=== PATIENT | female | born 1990 | race Caucasian/White ===

== ENCOUNTER 2021-01-26 19:03 | Emergency (ER) | payer OTHER, SELFPAY ==
--- NOTE | ~2021-01-26 | XR_ITS ---
EXAMINATION: XR knee LT min 4V DATE: 01/26/2021 19:26 INDICATION: Left knee pain. TECHNIQUE: 4 views of left knee were obtained. COMPARISON: None. FINDINGS: Bone alignment is normal. No fracture. Joint spaces are well maintained. There is no knee j oint effusion. IMPRESSION: 1. Normal left knee. Reviewed, dictated and finalized at location A. IMPRESSION: 1. Normal left knee.
[2021-01-26 19:15] VITALS: BP 110/83; PULSE 71; RESP 16; TEMP 36.2; O2SAT 100
--- NOTE | 2021-01-26 19:51 | ED.LOWEXIN ---
HPI - Extremity Injury (Lower) General Chief Complaint: Extremity Injury, Lower Stated Complaint: Left Knee Pain Time Seen by Provider: 01/26/21 19:51 Source: patient, RN notes reviewed and old records reviewed Mode of arrival: ambulatory Limitations: no limitations History of Present Illness HPI Narrative: 30 year old female who presents to [facility] with complaints of falling on stairs and hit her left knee on work out equipment. MD complaint: knee injury Type of Injury: blunt Severity scale (1-10): 6 Review of Systems Review of Systems: CONSTITUTIONAL: Denies fever, chills, or sweats. EYES: Denies visual changes, redness, or discharge. ENT: Denies rhinorrhea, congestion, sore throat, or otalgia. CARDIOVASCULAR: Denies chest pain, palpitations, or edema. RESPIRATORY: Denies cough or dyspnea. GASTROINTESTINAL: Denies abdominal pain, nausea, vomiting, or diarrhea. GENITOURINARY: Denies dysuria or hematuria. SKIN: Denies rash or itching.abrasion anterior left knee MUSCULOSKELETAL: Denies back pain, positive for left knee joint pain, or myalgia. NEUROLOGIC: Denies headache, numbness, or weakness. PSYCHIATRIC: Denies anxiety or depression. All systems reviewed & are unremarkable except as noted in HPI and below PMFSH Past Medical History Medical History (Updated 01/31/21 @ 17:53 by Deepali Wei NP) Seasonal allergies Surgical History Surgical History (Updated 01/31/21 @ 17:45 by Deepali Wei NP) No history of previous surgery Family History Family History (Updated 01/31/21 @ 17:45 by Deepali Wei NP) Other No significant family history Social History Social History (Updated 01/31/21 @ 17:43 by Deepali Wei NP) Smoking status: Never smoker Alcohol intake: current Alcohol use details: social Substance use: never Living arrangements: with family Gender identity (if verbalized by the patient): Female Comments At time of signature, agree with nursing past medical, surgical, social and family history. There is no relevant family history pertinent to the presenting complaint Exam Narrative: GENERAL: Well-appearing, well-nourished, and in no acute distress. HEAD: Normocephalic, atraumatic. EYES: PERRLA and EOMI. ENT: Nares clear, no rhinorrhea or epistaxis. Mucous membranes moist.TM's normal throat normal NECK: Supple.no lymphadenopathy CHEST: Clear to auscultation. No respiratory distress. HEART: Regular rate and rhythm. No murmur heard. Normal peripheral pulses. ABDOMEN: Soft, nontender, nondistended, normal active bowel sounds. EXTREMITIES: Normal range of motion. No edema.Pain to left knee especially with weight bearing, no laxity of knee joint noted, pain to anterior left knee region, no acute knee swelling noted,mobility, sensation and circulation intact. SKIN: Warm, dry, no rash.abrasion to left knee from fall NEURO: No focal deficits. Alert and oriented x3. Course Vital Signs Vital signs: Vital Signs Temperature 36.2 C L 01/26/21 19:15 Pulse Rate 71 01/26/21 19:15 Respiratory Rate 16 01/26/21 19:15 Blood Pressure 110/83 01/26/21 19:15 Pulse Oximetry 100 01/26/21 19:15 Temperature 36.2 C L 01/26/21 19:15 Pulse Rate 71 01/26/21 19:15 Respiratory Rate 16 01/26/21 19:15 Blood Pressure 110/83 01/26/21 19:15 Pulse Oximetry 100 01/26/21 19:15 MDM - Extremity Injury (Lower) Differential Diagnosis Differential diagnosis: Likely acute internal derangement of knee and other (Knee pain left, abrasion left knee, contusion left knee) Medical Records Attestation: I reviewed the patient's medical records. Imaging Data Attestation: I personally reviewed and interpreted this imaging study as follows: My impression: No fracture Radiologist's impression: [address] [phone] XRay ReportSigned Patient: Alden AroraDOB: 1990MR#: [id number]/Sex: 30 / FAcct:[id number]: EXPC
== END 2021-01-26 20:10 | disposition home or self-care (01) ==
PROVIDERS: Emergency Provider Registered Nurse; PCP Physician Assistant
DX: S80.02XA Contusion of left knee, initial encounter (principal); W10.9XXA Fall (on) (from) unspecified stairs and steps, initial encounter
CPT/HCPCS: 73564; 99203; G0463

== ENCOUNTER → 2023-01-11 12:58 | Outpatient (CLI) | payer OTHER, SELFPAY ==
--- NOTE | ~2023-01-11 | XR_ITS ---
EXAMINATION: XR chest 2V 01/11/2023 13:22 INDICATION: Congestion. Upper respiratory tract infection. Cough. PROCEDURE: 2 view chest COMPARISON: No prior studies for comparison. FINDINGS: The lungs are clear. The cardiomediastinal silhouette is within normal limits. There are no pleural effusions. There is no pneumothorax suspected. IMPRESSION: 1: NO ACUTE CARDIOPULMONARY DISEASE. Reviewed, dictated and finalized at location B.
== END ==
PROVIDERS: PCP Physician Assistant; Visit Provider Physician Assistant
DX: R05.1 Acute cough (principal); J39.8 Other specified diseases of upper respiratory tract
CPT/HCPCS: 71046

== ENCOUNTER 2023-04-21 17:22 | Observation (INO) | payer OTHER, SELFPAY ==
[2023-04-21] VITALS (26 sets, daily range): BP systolic 106–121; BP diastolic 55–72; PULSE 73–110; TEMP 36.6; O2SAT 99–100; BMI 26.4
[2023-04-21 18:04] LABS: Basophils Percent Auto 0.4 % (0.2-1.2); Eosinophils Absolute Auto 0.3 K/mm3 (0-0.3); Eosinophils Percent Auto 3.5 % (0-4.4); Hematocrit 33.7 % (37.0-47.0); Immature Granulocyte Absolute 0.06 K/mm3 (0.00-0.031); Immature Granulocyte Percent A 0.8 % (0-0.5); Lymphocytes Absolute Auto 1.82 K/mm3 (0.9-3.2); Lymphocytes Percent Auto 24.4 % (18.3-44.2); Mean Corpuscular HGB Conc 32.6 g/dl (32-36); Mean Corpuscular Hemoglobin 30.6 pg (26-34); Mean Corpuscular Volume 93.6 fl (80-100); Mean Platelet Volume 10.4 fl (7.4-10.4); Monocytes Absolute Auto 0.6 K/mm3 (0.1-0.6); Monocytes Percent Auto 8.3 % (2.6-8.5); Neutrophils Absolute Auto 4.7 K/mm3 (1.3-6.7); Neutrophils Percent Auto 62.6 % (45.5-73.1); Platelet Count Result 207 k/mm3 (150-375); Red Cell Distribution Width 13.2 % (11.5-14.5); White Blood Count 7.5 K/mm3 (4.5-10.0)
--- NOTE | 2023-04-21 18:47 | OBADM ---
This patient, Alden Solomon, admitted to the OB room [facility] for observation. Patient/family oriented to hospital policies and general routines including ID bracelet, bed and alarms, visiting hours, pain management, procedures, bathroom and other care routines, personal items, smoking policy, room service/diet, and visiting hours. Patient/Family are encouraged to report perceived risks to care and to ask questions if they do not understand what they are told or what they should do.
--- NOTE | 2023-04-21 18:55 | PC.NURSE ---
1740--Pt reports elevate HR at 100 for one hour at home. Pt reports that HR did decrease before coming in but still felt dizzy occasionally.
--- NOTE | 2023-04-21 18:58 | PC.NURSE ---
1833-Pt remains stable,VSS, no current dizziness. Labs drawn and sent.
--- NOTE | 2023-04-21 19:00 | PC.NURSE ---
Called Dr. Domínguez with pt update. Pt admitted with complaints of dizziness, decreased BP and elevated heart rate. Informed of lab results, BPs and heart rate. Pt states that she no longer feels dizzy and that heart rate began coming down prior to admission. September D/C home to follow up at regularly scheduled appointment.
--- NOTE | 2023-05-11 08:11 | P.PNOB_ITS ---
OB - Triage/Final Diagnosis Visit Information Comments/Additional reasons for admission: I have assessed the risk for this patient, Alden Solomon, and determined that she would benefit from observation care. Evaluation Laboratory results: Laboratory Tests 04/21/23 17:51 WBC 7.5 RBC 3.60 L Hgb 11.0 L Hct 33.7 L MCV 93.6 MCH 30.6 MCHC 32.6 RDW 13.2 Plt Count 207 MPV 10.4 Immature Gran % (Auto) 0.8 H Neut % (Auto) 62.6 Lymph % (Auto) 24.4 [place] % (Auto) 8.3 Eos % (Auto) 3.5 Baso % (Auto) 0.4 Lymph # (Auto) 1.82 [place] # (Auto) 0.6 Eos # (Auto) 0.3 Baso # (Auto) 0.0 Abs Immat Gran (auto) 0.06 H Absolute Neuts (auto) 4.7 Absolute Nucleated RBC 0.0 Nucleated RBC % 0.0 Final Diagnosis (1) Dizziness: Code(s): R42 - Dizziness and giddiness Status: Acute (2) Elevated blood pressure affecting , antepartum: Code(s): O16.9 - Unspecified maternal hypertension, unspecified trimester Status: Acute
== END 2023-04-21 19:10 | disposition home or self-care (01) ==
PROVIDERS: Admitting Provider Obstetrics & Gynecology; PCP Nurse Practitioner Family; Visit Provider Obstetrics & Gynecology
DX: O26.92 Pregnancy related conditions, unspecified, second trimester (principal); R42 Dizziness and giddiness; Z3A.20 20 weeks gestation of pregnancy
CPT/HCPCS: 36415; 85025; G0378; G0379